=== PATIENT | male | born 1965 | race Caucasian/White ===

== ENCOUNTER → 2016-04-16 | Outpatient (CLI) | payer OTHER ==
[~2016-04-16] MED LIST: CARB200T3 PO; CLC100 PO; LISI10TA PO; OXYC-57 PO; PRED-301 PO; TRIA0.1C20 TOP
== END | disposition home or self-care (01) ==
LOC: C.RDSM 12:50
PROVIDERS: ATTEND Orthopaedic Surgery
DX: R52 Pain, unspecified (principal); Z09 Encounter for follow-up examination after completed treatment for conditions other than malignant neoplasm

== ENCOUNTER → 2016-05-28 | Outpatient (CLI) | payer OTHER | END | disposition home or self-care (01) | LOC: C.RDSM 10:37 | PROVIDERS: ATTEND Orthopaedic Surgery | DX: M25.531 Pain in right wrist (principal) ==

== ENCOUNTER → 2016-07-02 | Outpatient (CLI) | payer OTHER ==
[~2016-07-02] MED LIST changes: -TRIA0.1C20 TOP
== END | disposition home or self-care (01) ==
LOC: C.RDSM 10:00
PROVIDERS: ATTEND Orthopaedic Surgery
DX: M25.531 Pain in right wrist (principal)

== ENCOUNTER → 2016-08-27 | Outpatient (CLI) | payer OTHER | END | disposition home or self-care (01) | LOC: C.RDSM 08:15 | PROVIDERS: ATTEND Orthopaedic Surgery | DX: M19.90 Unspecified osteoarthritis, unspecified site (principal) ==

== ENCOUNTER → 2016-10-19 | Outpatient (CLI) | payer OTHER ==
--- NOTE | 2016-10-19 11:49 | DIAGNOSTIC IMAGING REPORT ---
PET/CT SKULL-THIGH CLINICAL HISTORY: 51 years-old Male with SINGLE PULMONARY NODULE. COMPARISON: CT chest 09/10/2016 TECHNIQUE: The patient was injected with 12.35 mCi of F-18 fluorodeoxyglucose (FDG) and an emission scan was performed from the skull vertex to the toes. Noncontrast CT was performed for attenuation correction and anatomic localization. The blood glucose level was 78 mg/dl. FINDINGS: HEAD AND NECK: There is a physiologic distribution of activity, with no hypermetabolic foci. CHEST: There is a physiologic distribution of activity, with no hypermetabolic mediastinal, hilar or pulmonary foci. No hypermetabolic uptake is seen within the 5 mm noncalcified pulmonary nodule of the inferior segment lingula. No uptake is seen within the areas of pleural-based nodularity involving the lateral basal segment right lower lobe and lateral segment right middle lobe which appear to be most compatible with areas of pleural parenchymal scarring. Mildly prominent subcarinal lymph node measures 1.3 x 0.8 cm on image 90 of the axial series with SUV max of 2.1, likely physiologic. There is a mild amount of increased radiotracer uptake within the left atrial wall which is nonspecific. ABDOMEN AND PELVIS: There is moderate wall thickening of the gastric fundus and greater curvature proximal body with SUV max of 4.5. No well delineated mass is identified. These findings are seen on images 128 through 135 of the axial series. Additionally, mildly increased radiotracer uptake is seen within the distal esophagus with SV max of 2.5. Nonspecific increased radiotracer uptake is seen within the hepatic flexure, likely physiologic peristalsis. Increased radiotracer uptake within the region of the distal right ureter is likely physiologic as well. Nonspecific increased tracer uptake seen within the region of the upper scrotum bilaterally with SUV max of 3.4 on the right. There is a physiologic distribution of activity within the liver, spleen and adrenal glands. MUSCULOSKELETAL SYSTEM AND EXTREMITIES: There is a physiologic distribution of activity within the bone marrow, with no hypermetabolic foci. ADDITIONAL CT FINDINGS: There is moderate atherosclerosis of the abdominal and iliac vasculature. There appears be bilateral hydroceles. Prostate is mildly prominent with coarse parenchymal calcifications seen centrally. Bones are intact. IMPRESSION: 1. No hypermetabolic activity identified within the 5 mm noncalcified pulmonary nodule of the inferior segment lingula. Additional follow-up is recommended as this may be below the limits in size for PET. 2. Moderate gastric wall thickening with intense radiotracer uptake in the region of the gastric fundus is suspicious for gastritis or possible neoplasm. Correlate with endoscopy. 3. Mildly increased radiotracer uptake in the distal esophagus is also noted. 4. Bilateral hydroceles with associated increased radiotracer uptake. Correlate with clinical exam. Please refer to below summary of Fleischner criteria recommendations for follow-up of incidental CT nodules (Anila Hartley, Guidelines for management of small pulmonary nodules detected on CT scans: A statement from the Fleischner Society, Radiology 237: [phone].) SOLID NODULES Solitary nodule size: <6 mm * Low risk patients: no follow-up needed * high risk patients: optional CT at 12 months Solitary nodule size: 6-8 mm * Low risk patients: follow-up at 6-12 months, then consider further follow-up at 18-24 months * high risk patients: initial follow-up CT at 6-12 months and then at 18-24 months if no change Solitary nodule size: >8 mm * either low or high risk patients - consider follow-up CT at 3 months, and/or CT-PET, and/or biopsy Multiple nodules size: <6 mm * Low risk patients: no routine follow-up * high risk patients: optional CT at 12 months Multiple nodules size: 6-8 mm * Low risk patients: follow-up at 3-6 months, then consider further follow-up at 18-24 months * high risk patients: follow-up at 3-6 months, then at 18-24 months if no change Multiple nodules size: >8 mm * Low risk patients: follow-up at 3-6 months, then consider further follow-up at 18-24 months * high risk patients: follow-up at 3-6 months, then at 18-24 months if no change Note: newly detected indeterminate nodule in persons 35 years of age or older. * Low risk patients: minimal or absent history of smoking and/or other known risk factors * high risk patients: history of smoking or of other known risk factors (e.g. first degree relative with lung cancer, or exposure to asbestos, radon, uranium) * if a nodule up to 8 mm is partly solid or is ground glass further follow-up is required after 24 months to exclude possible slow growing adenocarcinoma (BALDEV) The above report was generated using voice recognition software. It may contain grammatical, syntax or spelling errors. Electronically signed by: Alexis Jacobs M.D. 10/19/2016 11:48 AM Dictated Date/Time: 10/19/2016 11:03 AM
== END | disposition home or self-care (01) ==
LOC: C.PET 07:15
PROVIDERS: ATTEND Surgery
DX: R91.1 Solitary pulmonary nodule (principal)

== ENCOUNTER → 2016-10-22 | Day surgery (SDC) | payer OTHER ==
[2016-10-21 09:26] VITALS: BMI 21.0
[~2016-10-22] VITALS: Ht 177.8 cm; Wt 68.2 kg
[~2016-10-22] MED LIST changes: +LIDOCAINE HCL 2% 2 ML VIAL (20MG/ML) ONE; -PRED-301 PO; +PROPOFOL IV EMULSION 10 MG/ML 20 ML VIAL IV ONE; +SODIUM CHLORIDE 0.9% 500ML 500 ML IV ONE
[2016-10-22 10:48] VITALS: Ht 177.8 cm; Wt 68.2 kg
--- NOTE | 2016-10-22 11:52 | Endo History and Physical ---
History & Physical Date of Service: Oct 22, 2016. Chief Complaint: GASTRITIS Referring Physician: DR. FREDA GARCIA History of Present Illness 51 yo presenting for EGD for abnormal PET scan findings in gastric cardia and fundus Past Medical History Arthritis Past Surgical History Hx Cardiac Surgery: No Hx Internal Defibrillator: No Hx Pacemaker: No Hx Abdominal Surgery: No Hx of Implantable Prosthesis: No Hx Post-Op Nausea and Vomiting: No Hx Cancer Surgery: No Hx Thoracic Surgery: No Hx Orthopedic: Yes (LT FOOT X3, RT HAND X3 WITH FUSION) Hx Urinary Tract Surgery: No Family History None Social History Smoking Status: Former Smoker Hx Substance Use: No Hx Alcohol Use: No Allergies Coded Allergies: No Known Allergies (Verified , 10/22/16) Current Medications Reported Home Medications Medications Dose Route/Sig Max Daily Dose Days Date Category Prinivil (Lisinopril) 10 Mg Tab 10 Mg PO QPM 10/21/16 Reported Tegretol (Carbamazepine) 200 Mg Tab 200 Mg PO BID 09/06/13 Reported Vital Signs Weight (Kilograms): 68.18 Height (Feet): 5 Height (Inches): 10 Date Time Temp Pulse Resp B/P (MAP) Pulse Ox O2 Delivery O2 Flow Rate FiO2 10/22/16 10:53 36.7 64 18 121/83 (96) 97 Room Air Physical Exam General Appearance: WD/WN, no apparent distress Respiratory/Chest: Respiratory effort: no dyspnea Auscultation: breath sounds normal, CTA except as noted Cardiovascular: Apical Impulse: not displaced Heart Auscultation: RRR, normal S1, normal S2, no murmurs Abdomen: Inspection & Palpation: soft, non-distended, no tenderness, guarding & rebound Assessment and Plan 51 yo presenting for EGD for follow up for abnormal PET scan.
--- NOTE | 2016-10-22 12:12 | Discharge Instructions ---
Endoscopy Patient Instructions Date / Procedure(s) Performed Oct 22, 2016. EGD Allergy Information Coded Allergies: No Known Allergies (Verified , 10/22/16) Discharge Date / Findings Oct 22, 2016. Normal Exam Findings taken of the gastric body and fundus Provider Instructions Activity Restrictions - No exercising or heavy lifting for 24 hours. - Do not drink alcohol the day of the procedure. - Do not drive a car or operate machinery until the day after the procedure. - Do not make any important decisions or sign important papers in 24 hours after the procedure. Following Day: - Return to full activity which may include returning to work/school. Diet Start your diet with liquids and light foods (jello, soup, juice, toast). Then eat your usual diet if not nauseated. Treatment For Common After Affects For mild abdominal pain, bloating, or excessive gas: - Rest - Eat lightly - Lie on right side Follow-Up Information Follow-up with DR. FREDA GARCIA as scheduled Anesthesia Information What You Should Know You have had a procedure that required some medicine to reduce anxiety and discomfort. This treatment is called moderate sedation. After receiving the treatment, you may be sleepy, but you will be able to breathe on your own. The effects of the treatment may last for several hours. Follow these instructions along with Activity/Diet recommendations noted above: * Do NOT do anything where dizziness or clumsiness would be dangerous. * Rest quietly at home today, then you can be up and about tomorrow. * Have a responsible person stay with you the rest of today. * You may have had an I.V. today. If so, you may take the dressing off later today. Recommendations Call your doctor if: * Trouble breathing * Continuous vomiting for more than 24 hours * Temperature above 101 degrees * Severe abdominal pain or bloating * Pain not relieved by pain medicine ordered * There is increased drainage or redness from any incision * A large amount of rectal bleeding greater than 2-3 tablespoons. (If you had a polyp/s removed or have hemorrhoids, a small amount of blood - from the rectum is to be expected.) * You have any unanswered questions or concerns. IN THE EVENT OF A SERIOUS EMERGENCY, GO TO THE NEAREST EMERGENCY ROOM Your discharge instructions were prepared by provider Og Lopez. Patient Instructions Signature Page Rudy Herrmann Patient (or Guardian) Signature/Date: I have read and understand the instructions given to me by my caregivers. Caregiver/RN/Doctor Signature/Date: The above-named patient and/or guardian has received patient instructions on this date. + Original Patient Signature Page (only) stays with chart. Please make copy for patient.
--- NOTE | 2016-10-22 12:12 | GI REPORT ---
Procedure Date: 10/22/2016 11:03 AM Procedure: Upper GI endoscopy Indications: Abnormal PET scan of the GI tract, Lung Nodule concerning for Malignancy. Positive uptake in the gastric greater curv and fundus. Medicines: General Anesthesia Complications: No immediate complications. Estimated blood loss: None. Estimated Blood Loss: Estimated blood loss: none. Procedure: Pre-Anesthesia Assessment: - Pre-Anesthesia Assessment: - Prior to the procedure, a History and Physical was performed, and patient medications, allergies and sensitivities were reviewed. The patient's tolerance of previous anesthesia was reviewed. Please see [facility] for complete details. - The risks and benefits of the procedure and the sedation options and risks were discussed with the patient. All questions were answered and informed consent was obtained. - Patient identification and proposed procedure were verified prior to the procedure by the physician and the nurse. The procedure was verified in the pre-procedure area in the procedure room. After obtaining informed consent, the endoscope was passed carefully and meticuously under direct vision and only advanced when the lumen was clearly identified, C02 insuflation was utilized throughout the entirity of the procedure. Throughout the procedure, the patient's blood pressure, pulse, and oxygen saturations were monitored continuously. After obtaining informed consent, the endoscope was passed under direct vision. Throughout the procedure, the patient's blood pressure, pulse, and oxygen saturations were monitored continuously. The Scope was introduced through the mouth, and advanced to the second part of duodenum. The upper GI endoscopy was accomplished without difficulty. The patient tolerated the procedure well. Findings: The examined esophagus was normal. The entire examined stomach was normal. Multiple biopsies were obtained in the gastric fundus, on the anterior wall of the stomach and on the greater curvature of the stomach with cold forceps for histology. The examined duodenum was normal. Impression: - Normal esophagus. - Normal stomach. - Normal examined duodenum. - Multiple biopsies were obtained in the gastric fundus, on the anterior wall of the stomach and on the greater curvature of the stomach. Recommendation: - Await pathology results. - Return to referring physician as previously scheduled. - Exam appeared normal, follow up biopsies, but no endoscopic evidence of mucosal based pathology. Og Lopez MD 10/22/2016 12:11:31 PM This report has been signed electronically. Note Initiated On: 10/22/2016 11:03 AM I attest to the content of the Intraoperative Record and orders documented therein, exceptions below
--- NOTE | 2016-10-22 12:34 | Anesthesiology Progress Note ---
Anesthesia Post Op Note Date & Time Oct 22, 2016 at 12:33 Vital Signs Pain Intensity: 0 Vital Signs Past 12 Hours Date Time Temp Pulse Resp B/P (MAP) Pulse Ox O2 Delivery O2 Flow Rate FiO2 10/22/16 12:24 67 16 121/83 (96) 95 Room Air 10/22/16 12:15 67 16 106/71 (83) 95 Room Air 10/22/16 10:53 36.7 64 18 121/83 (96) 97 Room Air Notes Mental Status: alert / awake / arousable, participated in evaluation Pt Amnestic to Procedure: Yes Nausea / Vomiting: adequately controlled Pain: adequately controlled Airway Patency, RR, SpO2: stable & adequate BP & HR: stable & adequate Hydration State: stable & adequate Anesthetic Complications: no major complications apparent
--- NOTE | 2016-10-22 12:50 | Anesthesiology Progress Note ---
Anesthesia Post Op Note Date & Time Oct 22, 2016 at 12:50 Vital Signs Pain Intensity: 0 Vital Signs Past 12 Hours Date Time Temp Pulse Resp B/P (MAP) Pulse Ox O2 Delivery O2 Flow Rate FiO2 10/22/16 12:42 62 18 139/97 (111) 97 Room Air 10/22/16 12:24 67 16 121/83 (96) 95 Room Air 10/22/16 12:15 67 16 106/71 (83) 95 Room Air 10/22/16 10:53 36.7 64 18 121/83 (96) 97 Room Air Notes Mental Status: alert / awake / arousable, participated in evaluation Pt Amnestic to Procedure: Yes Nausea / Vomiting: adequately controlled Pain: adequately controlled Airway Patency, RR, SpO2: stable & adequate BP & HR: stable & adequate Hydration State: stable & adequate Anesthetic Complications: no major complications apparent
[2016-10-22 12:57] VITALS: BP 137/96; PULSE 64; O2SAT 97
== END | disposition home or self-care (01) ==
LOC: C.GI 10:29
PROVIDERS: ATTEND Internal Medicine
DX: R94.8 Abnormal results of function studies of other organs and systems (principal); K29.50 Unspecified chronic gastritis without bleeding; M19.90 Unspecified osteoarthritis, unspecified site; Z98.1 Arthrodesis status; Z87.891 Personal history of nicotine dependence; I10 Essential (primary) hypertension; Z86.19 Personal history of other infectious and parasitic diseases; R56.9 Unspecified convulsions; R91.1 Solitary pulmonary nodule

== ENCOUNTER → 2016-10-29 | Outpatient (CLI) | payer OTHER ==
[~2016-10-29] MED LIST changes: -LIDOCAINE HCL 2% 2 ML VIAL (20MG/ML) ONE; -PROPOFOL IV EMULSION 10 MG/ML 20 ML VIAL IV ONE; -SODIUM CHLORIDE 0.9% 500ML 500 ML IV ONE
== END | disposition home or self-care (01) ==
LOC: C.RDSM 08:00
PROVIDERS: ATTEND Orthopaedic Surgery
DX: M19.90 Unspecified osteoarthritis, unspecified site (principal); M25.521 Pain in right elbow

== ENCOUNTER → 2016-11-05 | Outpatient (CLI) | payer OTHER ==
[2016-11-05 12:14] LABS: BASO % 0.3 %; BASO ABS # 0.02 K/uL (0-0.2); COMPLETE YES; EOS % 5.7 %; HEMATOCRIT 38.1 % (42-52); IG% 0.2 %; LYMPH % 28.1 %; LYMPH ABS # 1.76 K/uL (1.2-3.4); MEAN CORPUSCULAR HEMOGLOBIN 35.8 pg (25-34); MEAN CORPUSCULAR HGB CONC 36.2 g/dl (32-36); MEAN PLATELET VOLUME 8.7 fL (7.4-10.4); MONO % 10.4 %; NEUT % 55.3 %; PLATELET COUNT 312 K/uL (130-400); RED BLOOD COUNT 3.85 M/uL (4.7-6.1); WHITE BLOOD COUNT 6.27 K/uL (4.8-10.8)
[2016-11-05 12:36] LABS: BLOOD UREA NITROGEN 10 mg/dl (7-18); BUN/CREATININE RATIO 13.9 (10-20); CALCIUM 8.7 mg/dl (8.5-10.1); CARBON DIOXIDE 27 mmol/L (21-32); CHLORIDE 95 mmol/L (98-107); CREATININE 0.75 mg/dl (0.60-1.40); GLUCOSE 91 mg/dl (70-99); POTASSIUM 4.8 mmol/L (3.5-5.1); SODIUM 128 mmol/L (136-145)
== END | disposition home or self-care (01) ==
LOC: C.CPL 09:27
PROVIDERS: ATTEND Surgery
DX: Z01.812 Encounter for preprocedural laboratory examination (principal); R59.0 Localized enlarged lymph nodes; R91.1 Solitary pulmonary nodule; R94.31 Abnormal electrocardiogram [ECG] [EKG]

== ENCOUNTER 2016-11-18 05:30 | Inpatient (IN) | payer OTHER ==
[2016-11-03 11:10] VITALS: BMI 21.0
[2016-11-18] VITALS (10 sets, daily range): BP systolic 110–125; BP diastolic 72–85; PULSE 66–87; TEMP 36.4–36.8; O2SAT 96–100; Ht 177.8 cm; Wt 68.0 kg
[~2016-11-18] VITALS: Ht 177.8 cm; Wt 68.0 kg
[~2016-11-18 05:30] MED LIST changes: -CLC100 PO; -OXYC-57 PO
[2016-11-18] MEDS ORDERED: LACTATED RINGER'S 1000ML 1,000 ML IV SCH (06:00)
[2016-11-18] MEDS ORDERED: BUPIVACAINE LIPOSOME 1/3% 266 MG/20 ML VIAL INFIL ONE (06:44)
[2016-11-18] MEDS ORDERED: SODIUM CHLORIDE 0.9% PF 50 ML VIAL ONE (06:44)
--- NOTE | 2016-11-18 07:03 | History & Physical Bridge Note ---
H&P Re-Evaluation Bridge Note: I have examined the patient, reviewed the History & Physical and in the interval since the performance of the History & Physical I have noted the following changes of clinical significance:discussed the fact we will be removing the lingular segment on the left side. No changes noted
[2016-11-18] MEDS ORDERED: MIDAZOLAM HCL 1 MG/ML 2ML VIAL ONE (07:05)
[2016-11-18] MEDS ORDERED: FENTANYL CITRATE INJ 50 MCG/1 ML 2 ML VIAL ONE ×2 (07:06→13:38)
[2016-11-18] MEDS ORDERED: KETAMINE HCL INJ 50 MG/ML 10 ML VIAL ONE (07:06)
[2016-11-18] MEDS ORDERED: CISATRACURIUM BESYLATE IV SOLN 2 MG/ML 10 ML VIAL ONE (10:45)
[2016-11-18] MEDS ORDERED: CEFAZOLIN SOD 1 GM VIAL ONE (10:45)
[2016-11-18] MEDS ORDERED: PROPOFOL IV EMULSION 10 MG/ML 20 ML VIAL IV ONE (10:45)
[2016-11-18] MEDS ORDERED: EpHEDrine SULFATE 50MG/5ML SYR ONE (10:45)
[2016-11-18] MEDS ORDERED: PHENYLEPHRINE 100MCG/ML 5ML SYR ONE (10:45)
[2016-11-18] MEDS ORDERED: EpHEDrine SULFATE INJ 50 MG/ML AMP ONE (10:45)
[2016-11-18] MEDS ORDERED: LIDOCAINE HCL 2% 2 ML VIAL (20MG/ML) ONE (10:45)
[2016-11-18] MEDS ORDERED: GLYCOPYRROLATE INJ 0.2 MG/ML VIAL ONE (10:48)
[2016-11-18] MEDS ORDERED: NEOSTIGMINE METHYLSULFATE 5 MG/5 ML SYR ONE (10:48)
[2016-11-18] MEDS ORDERED: SURGICEL ABSORB HEMOSTAT 2IN X 14IN TOP ONE (10:51)
[2016-11-18] MEDS ORDERED: HYDROmorphone INJ 2 MG/ML SYR/VIAL ONE (14:22)
[2016-11-18] MEDS ORDERED: ONDANSETRON INJ 2 MG/ML 2 ML VIAL IV PRN (14:30)
[2016-11-18] MEDS ORDERED: LABETALOL HCL IV 5 MG/ML 20ML IV PRN (14:30)
[2016-11-18] MEDS ORDERED: NALOXONE HCL 0.4 MG/1 ML VIAL/CARP IV PRN (14:30)
[2016-11-18] MEDS ORDERED: FLUMAZENIL 0.1 MG/1 ML 10 ML VIAL IV PRN (14:30)
[2016-11-18] MEDS ORDERED: ATROPINE SULFATE 0.1 MG/ML 5ML SYR IV PRN (14:30)
[2016-11-18] MEDS: HYDROmorphone INJ 1 MG/ML SYR IV PRN ×8 (14:30→15:05)
[2016-11-18] MEDS ORDERED: PROMETHAZINE HCL INJ 12.5 MG in SODIUM CHLORIDE 0.9% 50ML 50 ML IV PRN (14:30)
[2016-11-18] MEDS ORDERED: EpHEDrine SULFATE INJ 50 MG/ML AMP IV PRN (14:30)
--- NOTE | 2016-11-18 14:56 | DIAGNOSTIC IMAGING REPORT ---
CHEST ONE VIEW PORTABLE HISTORY: Postop. left lung resection COMPARISON: Chest 10/15/2014. FINDINGS: Left-sided chest tube terminates in the left lung apex. There is a small amount of left chest wall subcutaneous emphysema. Left basilar linear densities may be due to atelectasis or postoperative change. Small left apical pneumothorax. A few right basilar linear densities. The heart is normal in size. Trace gas within the left paratracheal location is likely due to the pneumothorax rather than pneumomediastinum. IMPRESSION: Small left pneumothorax. Left-sided chest tube terminates in the left lung apex. Electronically signed by: Asaf Puckett M.D. 11/18/2016 2:54 PM Dictated Date/Time: 11/18/2016 2:51 PM
--- NOTE | 2016-11-18 15:11 | Anesthesiology Progress Note ---
Anesthesia Post Op Note Date & Time Nov 18, 2016 at 15:10 Vital Signs Pain Intensity: 7 Vital Signs Past 12 Hours Date Time Temp Pulse Resp B/P (MAP) Pulse Ox O2 Delivery O2 Flow Rate FiO2 11/18/16 14:37 81 10 100 11/18/16 14:37 81 10 11/18/16 14:35 101/74 11/18/16 14:32 87 19 100 11/18/16 14:32 85 19 11/18/16 14:31 112/66 11/18/16 14:27 75 13 11/18/16 14:27 75 13 100 11/18/16 14:26 106/69 11/18/16 14:22 80 16 11/18/16 14:22 79 16 100 11/18/16 14:20 114/76 11/18/16 14:17 80 16 11/18/16 14:17 80 16 100 11/18/16 14:15 109/68 11/18/16 14:12 85 20 11/18/16 14:12 36.4 86 16 107/66 99 Oxymask 13 11/18/16 14:12 84 20 107/66 100 11/18/16 05:54 36.6 66 20 110/79 96 Room Air Notes Mental Status: alert / awake / arousable, participated in evaluation Pt Amnestic to Procedure: Yes Nausea / Vomiting: adequately controlled Pain: adequately controlled Airway Patency, RR, SpO2: stable & adequate BP & HR: stable & adequate Hydration State: stable & adequate Anesthetic Complications: no major complications apparent
--- NOTE | 2016-11-18 16:04 | OPERATIVE REPORT ---
DATE OF OPERATION: 11/18/2016 PREOPERATIVE DIAGNOSES: 1. Mass lingular segment. 2. History of cigarette smoking. 3. Family history of lung cancer. POSTOPERATIVE DIAGNOSIS: Same. PROCEDURE: Robotic-assisted thoracoscopic segmentectomy (lingulectomy). SURGEON: Dr. Arrieta. ACCESS ASSOC: Jorge Snow PA-C. ANESTHESIA: General anesthesia endotracheal intubation. INDICATION FOR PROCEDURE AND FINDINGS: Rudy Herrmann is a 51-year-old male with a long history of cigarette smoking and has a very strong family history of cigarette smoking, underwent a screening CT scan and was found to have a small soft tissue mass in his lingula. We had a couple of meetings in the office and I explained to him that 1 option would be to just simply observe this and check a CT scan in 3-6 months. He was not interested in this. He was quite concerned that the possibility of cancer. His father is dying from metastatic lung cancer now and has greatly affected him. I told him that a segmentectomy would be helpful for this very small mass. It would provide a oncologic resection with minimal amount of functioning lung lost and would also remove the mass so the diagnosis could be made. On 11/18/2016 the patient underwent an uncomplicated Robot-assisted thoracoscopic segmentectomy of the lingular segment on the left. He tolerated it well, negligible blood loss. He was extubated in the room. This mass was not palpable. PROCEDURE: The patient was brought to the operating room and laid in supine position. General anesthesia was induced and endotracheal intubation was performed. After prepping and draping in usual sterile fashion and after the patient was placed in the right lateral decubitus position a timeout was called. Prophylactic antibiotics were given. I then made 5 incisions. These were all very small. I made a 5 mm incision posteriorly in the seventh interspace and then made two 8 mm incisions and a 12 mm incision. I also placed an assistance port 2 interspaces below this and this was a 12 mm port for the stapler. The instruments were placed after the ports had been docked by the robot. I then went to the console and I was able to see there were really no adhesions. He had fairly well-developed fissures. His posterior fissure was almost completely developed on the left side, but the anterior fissure was not. He had marked adhesions to the mediastinum, interestingly enough. I meticulously took down these adhesions and there were also adhesions to the diaphragm from the left lower lobe. I took down the inferior pulmonary ligament and ran into a small amount of bleeding. I really did not see much in the way of lymph nodes here. I then went posteriorly and dissect out some level 10 nodes. I really did not see much in the level 7 area. It was difficult to get to. The lung was then rotated back posteriorly and I dissected out the anterior hilar area with care taken to avoid injury to the phrenic nerve. I detected out multiple level 12 nodes, level 11 node, level 10 nodes and a fairly large level 5 node. I did not see much in the level 6 area. I dissected this out and divided the lingular vein. I could not palpate a mass or see one. I fired Endo-SHANIQUA stapler across the lingular vein. The anterior fissure was not developed at all. I then went down and found the continuation pulmonary artery and the fissure and followed this out. I came upon the 2 branches to the lingula which were divided with Endo-SHANIQUA stapler. I then fired Endo-SHANIQUA stapler anterior to this to complete the fissure. I then dissected out the lingular segment of the bronchus, fired Endo-SHANIQUA stapler across this. I then had to meticulously dissect out the medial aspect of the left upper lobe from the mediastinum, but we got all this freed up nicely. After taking the artery and vein and the airway I then injected indocyanine green (ICG) and could see that there was no perfusion to the lingular segment. I then fired Endo-SHANIQUA stapler across this. We also inflated the lung to make sure there was no air leak and then we inflated all the remaining areas. 266 mg of Exparel mixed with 60 mL of normal saline injected from the 2nd to the 11th rib. I was quite happy with the fact that we had very little in the way of an air leak and really did not have blood loss. The segment was delivered off the field in an Endobag. I irrigated out and did not see a very large air leak and proceeded to close. A 24 Mongolian chest tube was directed posteriorly and towards the apex to the anterior thoracoscopy port and then 2 drains were placed with heavy silk suture. The other thoracoscopy sutures were closed with 0 Vicryl to close the muscle layer x1 suture and then 4-0 Monocryl was used in a running subcuticular fashion to approximate the wound edges. He tolerated it well and was extubated in the room and sent back to the post anesthesia care unit in stable condition. I attest to the content of the Intraoperative Record and any orders documented therein. Any exception s are noted below.
[2016-11-18] MEDS: ONDANSETRON INJ 2 MG/ML 2 ML VIAL IV PRN ×2 (16:25→21:20)
[2016-11-18] MEDS: D5W AND 1/2NSS 1,000 ML IV SCH (16:28)
[2016-11-18] MEDS: CEFAZOLIN IV 2,000 MG in DEXTROSE 5% 50ML 50 ML IV SCH (18:10)
[2016-11-18] MEDS ORDERED: LISINOPRIL 10 MG TAB PO SCH (21:00)
[2016-11-18] MEDS: DOCUSATE SODIUM 100 MG CAP PO SCH (21:18)
[2016-11-18] MEDS: CARBAMAZEPINE 200 MG TAB PO SCH (21:19)
[2016-11-18] MEDS: OXYCODONE HCL IR 5 MG TAB (IMMEDIATE RELEASE) PO PRN (21:21)
[2016-11-18] MEDS: ACETAMINOPHEN IV 1,000 MG in EMPTY BAG 0 ML IV SCH (22:14)
[2016-11-18] MEDS: METOCLOPRAMIDE HCL INJ 5 MG/ML 2 ML VIAL IV. SCH (22:15)
[2016-11-18] MEDS: KETOROLAC TROMETHAMINE 15 MG/ML VIAL IV. SCH (22:15)
[2016-11-19] MEDS: CEFAZOLIN IV 2,000 MG in DEXTROSE 5% 50ML 50 ML IV SCH (01:48)
[2016-11-19] MEDS: D5W AND 1/2NSS 1,000 ML IV SCH ×2 (01:49→08:27)
[2016-11-19 01:51] VITALS: BP 110/72; PULSE 69; TEMP 36.8; O2SAT 98
[2016-11-19] MEDS: MoRPHine SULFATE 2 MG/ML CARP IV PRN ×2 (01:57→05:13)
[2016-11-19 03:55] VITALS: BP 118/77; PULSE 67; TEMP 36.9; O2SAT 97
[2016-11-19] MEDS: ACETAMINOPHEN IV 1,000 MG in EMPTY BAG 0 ML IV SCH (06:12)
[2016-11-19] MEDS: KETOROLAC TROMETHAMINE 15 MG/ML VIAL IV. SCH ×2 (06:13→13:45)
[2016-11-19] MEDS: METOCLOPRAMIDE HCL INJ 5 MG/ML 2 ML VIAL IV. SCH ×2 (06:13→13:45)
[2016-11-19 06:54] LABS: COMPLETE YES; EOS % 1.5 %; HEMATOCRIT 31.2 % (42-52); IG% 0.2 %; LYMPH % 24.5 %; LYMPH ABS # 1.97 K/uL (1.2-3.4); MEAN CELL VOLUME 100.3 fL (80-100); MEAN CORPUSCULAR HEMOGLOBIN 34.4 pg (25-34); MEAN CORPUSCULAR HGB CONC 34.3 g/dl (32-36); MEAN PLATELET VOLUME 7.9 fL (7.4-10.4); MONO % 13.1 %; NEUT % 60.7 %; PLATELET COUNT 240 K/uL (130-400); RED BLOOD COUNT 3.11 M/uL (4.7-6.1); WHITE BLOOD COUNT 8.03 K/uL (4.8-10.8)
[2016-11-19 07:09] LABS: PROTHROMBIN TIME (PATIENT) 10.9 SECONDS (9.0-12.0)
[2016-11-19 07:31] LABS: BUN/CREATININE RATIO 10.9 (10-20); CALCIUM 7.6 mg/dl (8.5-10.1); CREATININE 0.68 mg/dl (0.60-1.40); POTASSIUM 3.6 mmol/L (3.5-5.1)
--- NOTE | 2016-11-19 07:44 | DIAGNOSTIC IMAGING REPORT ---
CHEST ONE VIEW PORTABLE CLINICAL HISTORY: Left lung resection. COMPARISON STUDY: Chest radiograph November 18, 2016. FINDINGS: A left apical chest tube remains in place. No pneumothorax is visualized. There is subcutaneous gas within left chest wall and left neck. Bibasilar opacities persist. There is no evidence of pulmonary edema. Cardiomediastinal silhouette is unremarkable. IMPRESSION: 1. Left chest tube in place. No pneumothorax identified. 2. Bibasilar opacities. Right basilar opacity is suggestive of atelectasis while left basilar opacity is indeterminate but atelectasis is favored. Electronically signed by: Derrick Palma M.D. 11/19/2016 7:42 AM Dictated Date/Time: 11/19/2016 7:37 AM
[2016-11-19 07:57] VITALS: BP 124/80; PULSE 69; TEMP 36.8; O2SAT 97
[2016-11-19] MEDS: ONDANSETRON INJ 2 MG/ML 2 ML VIAL IV PRN (08:23)
[2016-11-19] MEDS: OXYCODONE HCL IR 5 MG TAB (IMMEDIATE RELEASE) PO PRN (08:23)
[2016-11-19] MEDS: CARBAMAZEPINE 200 MG TAB PO SCH (08:24)
[2016-11-19] MEDS: DOCUSATE SODIUM 100 MG CAP PO SCH (08:25)
--- NOTE | 2016-11-19 08:31 | Discharge Instructions ---
Discharge Instructions Date of Service Nov 19, 2016. Admission Reason for Admission: Mediastinal Adenopathy, Left Lung Nodule Discharge Discharge Diagnosis / Problem: Mediastinal Adenopathy, Left Lung Nodule Discharge Goals Goal(s): Learn about illness Activity Recommendations Activity Limitations: as noted below Lifting Limitations: none . Instructions / Follow-Up Instructions / Follow-Up 1. You may remove dressing in 3 days and shower thereafter. No tub baths. 2. Do not fly or SCUBA dive until cleared to do so by Dr. Arrieta. 3. Office appointment with Dr. Arrieta in 1 week. Office will call you with date and time fo appointment. You will need to go to hospital 1 hour before appointment to have a chest x-ray taken. Current Hospital Diet Patient's current hospital diet: Regular Diet Discharge Diet Recommended Diet: Regular Diet Procedures Procedures Performed: Robotic Assisted Left Thoracoscopy, Left Lingulectomy/ Segmentectomy and Mediastinal Lymphadenectomy Pending Studies Studies pending at discharge: no Medical Emergencies . Who to Call and When: Medical Emergencies: If at any time you feel your situation is an emergency, please call 911 immediately. . Non-Emergent Contact Non-Emergency issues call your: Surgeon Call Non-Emergent contact if: you have a fever, your pain is not controlled, wound has increased drainage . "Provider Documentation" section prepared by Omari Snow. . VTE Core Measure Inpt VTE Proph given/why not?: Enoxaparin (Lovenox)SQ
[2016-11-19] MEDS ORDERED: ENOXAPARIN 40 MG/0.4 ML SYR SQ SCH (09:00)
[2016-11-19] MEDS ORDERED: NURSING VERBAL MED ORDER ONE ×2 (09:00)
--- NOTE | 2016-11-19 09:08 | Anesthesiology Progress Note ---
Anesthesia Post Op Note Date & Time Nov 19, 2016 at 09:07 Vital Signs Pain Intensity: 4 Vital Signs Past 12 Hours Date Time Temp Pulse Resp B/P (MAP) Pulse Ox O2 Delivery O2 Flow Rate FiO2 11/19/16 07:57 36.8 69 14 124/80 (95) 97 Room Air 11/19/16 07:35 Room Air 11/19/16 03:55 36.9 67 18 118/77 (91) 97 Room Air 11/19/16 01:51 36.8 69 18 110/72 (85) 98 Room Air 11/18/16 23:55 Room Air 11/18/16 23:26 36.8 77 17 112/73 (86) 97 Room Air 11/18/16 21:20 36.5 72 18 115/79 (91) 96 Room Air Notes Mental Status: alert / awake / arousable Pt Amnestic to Procedure: Yes Nausea / Vomiting: adequately controlled Pain: adequately controlled Airway Patency, RR, SpO2: stable & adequate BP & HR: stable & adequate Hydration State: stable & adequate
[2016-11-19] MEDS ORDERED: CARBAMAZEPINE 200 MG TAB PO ONE (09:30)
[2016-11-19 09:40] VITALS: O2SAT 96
[2016-11-19] MEDS ORDERED: ACETAMINOPHEN 325 MG TAB PO SCH (10:00)
[2016-11-19] MEDS ORDERED: OXYC-57 PO ×2 (12:32)
[2016-11-19] MEDS ORDERED: CLC100 PO ×2 (12:32)
[2016-11-19 13:04] VITALS: BP 141/81; PULSE 70; TEMP 36.8; O2SAT 97
[2016-11-19 13:45] VITALS: BP 141/81; PULSE 70; TEMP 36.8; O2SAT 97
--- NOTE | 2016-11-19 14:14 | DISCHARGE SUMMARY ---
DATE OF DISCHARGE: 11/19/2016 DISCHARGE DIAGNOSES: Mass in the lingula. HOSPITAL COURSE: This is a 51-year-old male with long history of cigarette smoking who has a strong family history of lung cancer. He was found to have a soft tissue mass on screening CT scan which is very small in his lingular. The patient was quite concerned about this mass given the fact that his father is dying of metastatic lung cancer currently. He asked that "we removed this". It was too small to biopsy. We had a long talk about this and decided we would proceed with a robotic segmentectomy of the lingula. On 11/18/2016 the patient underwent uncomplicated resection of the lingula with a formal lingulectomy taken the lingular arteries, vein and bronchus. He tolerated this well and really had no air leak. We watched him on the floor overnight. He had no air leak. Very little drainage. His x-ray looked quite good. There was some pain issues, but I think he will improve with the removal of the chest tube. He was discharged home on postoperative day 1. I will see him back next week with a follow-up chest x-ray and to go over his pathology results.
--- NOTE | 2016-11-19 15:03 | DIAGNOSTIC IMAGING REPORT ---
SINGLE VIEW CHEST CLINICAL HISTORY: Status post chest tube removal. FINDINGS: An AP, portable, upright chest radiograph is compared to study dated 11/19/2016 and correlated with PET CT dated 10/19/2016. The examination is degraded by portable technique and patient rotation. The cardiomediastinal silhouette is unremarkable. Consolidative change and pleural fluid is seen at the left lung base. There is minimal right basilar atelectasis. The left apical chest tube has been removed. No pneumothorax is seen. The bony thorax is grossly intact. A benign-appearing sclerotic focus in the left humeral head is unchanged. Subcutaneous emphysema is again seen along the left chest wall and in the left lower neck. IMPRESSION: 1. A left apical chest tube has been removed. No pneumothorax is clearly seen. 2. Pleural fluid and consolidative change is noted at the left lung base. This likely represents atelectasis. Clinical correlation will be required. Electronically signed by: Luke Olivo M.D. 11/19/2016 3:02 PM Dictated Date/Time: 11/19/2016 1:07 PM
[2016-11-19] MEDS ORDERED: CARBAMAZEPINE 200 MG TAB PO SCH (21:00)
== END 2016-11-19 14:00 | disposition home or self-care (01) | DRG 983 ==
LOC: C.ACU 05:30 → C.MSW 05:50 → ENRESERV 15:25
PROVIDERS: ADMIT Surgery; ATTEND Surgery
PROC: 8E0W8CZ Robotic Assisted Procedure of Trunk Region, Via Natural or Artificial Opening Endoscopic (ICD-10-PCS; principal; 2016-11-18 07:30)
PROC: 0BBH4ZX Excision of Lung Lingula, Percutaneous Endoscopic Approach, Diagnostic (ICD-10-PCS; principal; 2016-11-18 07:30)
DX: R59.0 Localized enlarged lymph nodes (principal); B18.2 Chronic viral hepatitis C; R91.1 Solitary pulmonary nodule; R91.8 Other nonspecific abnormal finding of lung field; I10 Essential (primary) hypertension; J44.9 Chronic obstructive pulmonary disease, unspecified; M19.90 Unspecified osteoarthritis, unspecified site; G40.309 Generalized idiopathic epilepsy and epileptic syndromes, not intractable, without status epilepticus; Z86.010 Personal history of colon polyps; Z80.1 Family history of malignant neoplasm of trachea, bronchus and lung; Z87.891 Personal history of nicotine dependence

== ENCOUNTER → 2016-11-26 | Outpatient (CLI) | payer OTHER ==
[~2016-11-26] MED LIST changes: +CLC100 PO; +OXYC-57 PO
--- NOTE | 2016-11-26 09:52 | DIAGNOSTIC IMAGING REPORT ---
CHEST 2 VIEWS ROUTINE CLINICAL HISTORY: Left lung nodule. Postoperative evaluation. COMPARISON STUDY: Chest radiograph November 19, 2016. FINDINGS: Mild left hemithorax volume loss is noted. There is no pneumothorax. A small left pleural effusion has slightly increased since prior exam. Associated left lower lung opacity favors atelectasis. Cardiac size is normal. Mediastinal contours are normal. Pulmonary vascularity is normal. IMPRESSION: 1. Slight increase in a small left pleural effusion with associated opacity which favors atelectasis. 2. No pneumothorax. 3. Mild left lung volume loss. Electronically signed by: Derrick Palma M.D. 11/26/2016 9:50 AM Dictated Date/Time: 11/26/2016 9:48 AM
== END | disposition home or self-care (01) ==
LOC: C.RAD 09:30
PROVIDERS: ATTEND Surgery
DX: R91.1 Solitary pulmonary nodule (principal); J90 Pleural effusion, not elsewhere classified

== ENCOUNTER → 2016-12-22 | Outpatient (CLI) | payer OTHER ==
--- NOTE | 2016-12-22 10:45 | DIAGNOSTIC IMAGING REPORT ---
CHEST 2 VIEWS ROUTINE CLINICAL HISTORY: R91.1 Nodule of left [id number] nodule COMPARISON STUDY: 11/26/2016 FINDINGS: Stable pleural reactive change combined with effusion left lung base. Subtle improvement in aeration left lung base. Lungs otherwise are entirely clear. No evidence for cardiac enlargement. IMPRESSION: Stable to slightly improved appearance left base. Unchanging left effusion/pleural reactive change. Slight improvement in aeration left basilar region. The above report was generated using voice recognition software. It may contain grammatical, syntax or spelling errors. Electronically signed by: Jamie Deluna M.D. 12/22/2016 10:44 AM Dictated Date/Time: 12/22/2016 10:43 AM
== END | disposition home or self-care (01) ==
LOC: C.RAD 10:08
PROVIDERS: ATTEND Surgery
DX: R91.1 Solitary pulmonary nodule (principal)

== ENCOUNTER → 2017-03-04 | Outpatient (CLI) | payer OTHER | END | disposition home or self-care (01) | LOC: C.RDSM 10:58 | PROVIDERS: ATTEND Orthopaedic Surgery | DX: M25.521 Pain in right elbow (principal); M25.531 Pain in right wrist ==